=== PATIENT | female | born 1950 | race Caucasian/White ===

== ENCOUNTER → 2018-08-09 | Outpatient (CLI) | payer MEDICARE ==
[~2018-08-09] MED LIST: ACET1TAB12 PO; BUPR-93 PO; RISP1SOL10 PO
== END | disposition home or self-care (01) ==
LOC: OIH 07:34
PROVIDERS: ATTEND Neurological Surgery
DX: M51.36 Other intervertebral disc degeneration, lumbar region (principal); M48.061 Spinal stenosis, lumbar region without neurogenic claudication
CPT/HCPCS: 72100

== ENCOUNTER 2018-08-22 05:33 | Day surgery (SDC) | payer MEDICARE ==
[2018-08-17 12:34] VITALS: BP 123/53
[2018-08-22] VITALS (10 sets, daily range): BP systolic 105–138; BP diastolic 57–76
[~2018-08-22] VITALS: Ht 165.1 cm; Wt 81.1 kg
[~2018-08-22 05:33] MED LIST changes: -ACET1TAB12 PO; +FLUO40CA7 PO; +HYDR-4068 PO
[2018-08-22] MEDS ORDERED: IOPAMIDOL 10 ML VIAL ONE (06:44)
== END 2018-08-22 12:00 | disposition home or self-care (01) ==
LOC: RAH 05:33 → DAH 05:33 → EDSTATUS 07:00 → RAH 12:00
PROVIDERS: ATTEND Neurological Surgery
DX: M48.061 Spinal stenosis, lumbar region without neurogenic claudication (principal); R32 Unspecified urinary incontinence; M41.86 Other forms of scoliosis, lumbar region; G95.89 Other specified diseases of spinal cord; M51.16 Intervertebral disc disorders with radiculopathy, lumbar region; M86.9 Osteomyelitis, unspecified; Z98.890 Other specified postprocedural states; Z79.899 Other long term (current) drug therapy
CPT/HCPCS: 62304; 72132; Q9966

== ENCOUNTER 2018-08-24 12:45 | Inpatient (IN) | payer MEDICARE ==
[~2018-08-24] VITALS: Ht 167.6 cm; Wt 80.3 kg
[~2018-08-24 12:45] MED LIST changes: -RISP1SOL10 PO
[2018-08-24 12:58] VITALS: BP 112/54
[2018-08-24 13:06] LABS: BASOPHILS % (AUTO) 0.5 % (0.0-5.0); EOSINOPHILS % (AUTO) 3.1 % (0.0-8.0); HEMATOCRIT 40.9 % (36-48); LYMPHOCYTES % (AUTO) 20.1 % (21.0-51.0); MEAN CORPUSCULAR HEMOGLOBIN 32.8 pg (27.0-33.0); MEAN CORPUSCULAR HGB CONC 33.1 g/dL (32.0-36.0); MEAN CORPUSCULAR VOLUME 99.2 fL (79-99); MONOCYTES % (AUTO) 10.5 % (3.0-13.0); NEUTROPHILS % (AUTO) 65.8 % (40.0-77.0); NUCLEATED RED BLOOD CELLS 0.1 % (0.0-0.19); PLATELET COUNT (AUTO) 209 K/uL (130-400); RED BLOOD CELL COUNT(AUTO) 4.13 MIL/uL (4.00-5.50); RED CELL DISTRIBUTION WIDTH 12.5 % (11.0-15.5); WHITE BLOOD COUNT (AUTO) 3.3 K/uL (4.8-10.8)
[2018-08-24] MEDS ORDERED: PREG100C PO (13:09)
[2018-08-24] MEDS ORDERED: RISP1TAB89 PO (13:09)
[2018-08-24 13:17] LABS: CREATININE 0.7 mg/dL (0.5-1.5); POTASSIUM 4.3 mmol/L (3.5-5.1)
[2018-08-30] VITALS (18 sets, daily range): BP systolic 102–125; BP diastolic 52–78
[2018-08-30] MEDS ORDERED: LACTATED RINGERS 1000ML 1,000 ML IV ONE ×2 (06:23→06:25)
[2018-08-30] MEDS ORDERED: CLINDAMYCIN 900 MG/D5% WATER 50 ML IV ONE (06:25)
[2018-08-30 06:27] LABS: BASOPHILS % (AUTO) 0.4 % (0.0-5.0); EOSINOPHILS % (AUTO) 3.8 % (0.0-8.0); HEMATOCRIT 39.4 % (36-48); LYMPHOCYTES % (AUTO) 15.1 % (21.0-51.0); MEAN CORPUSCULAR HEMOGLOBIN 32.8 pg (27.0-33.0); MEAN CORPUSCULAR HGB CONC 33.1 g/dL (32.0-36.0); MEAN CORPUSCULAR VOLUME 99.1 fL (79-99); MONOCYTES % (AUTO) 9.9 % (3.0-13.0); NEUTROPHILS % (AUTO) 70.8 % (40.0-77.0); PLATELET COUNT (AUTO) 205 K/uL (130-400); RED BLOOD CELL COUNT(AUTO) 3.97 MIL/uL (4.00-5.50); RED CELL DISTRIBUTION WIDTH 12.4 % (11.0-15.5); WHITE BLOOD COUNT (AUTO) 3.4 K/uL (4.8-10.8)
[2018-08-30 06:35] LABS: CREATININE 0.8 mg/dL (0.5-1.5); POTASSIUM 4.2 mmol/L (3.5-5.1)
[2018-08-30] MEDS: CEFAZOLIN SODIUM 1 GM VIAL IVP PRN ×2 (06:50→08:30)
[2018-08-30] MEDS ORDERED: DEXAMETHASONE SOD PHOSPHATE 10MG/ML 1ML VIAL ONE ×2 (06:54→08:37)
[2018-08-30] MEDS ORDERED: LIDOCAINE PF 2% 5ML ABBOJECT ONE (06:54)
[2018-08-30] MEDS ORDERED: PROPOFOL 10 MG/ML 20ML VIAL IV ONE (06:54)
[2018-08-30] MEDS ORDERED: NEOSTIGMINE 5MG/5ML SYR IV ONE (06:55)
[2018-08-30] MEDS ORDERED: MIDAZOLAM HCL 1 MG/ML 2ML VIAL ONE (06:55)
[2018-08-30] MEDS ORDERED: ROCURONIUM 10MG/1ML SYR 10 MG/ML ML ONE (06:55)
[2018-08-30] MEDS ORDERED: FENTANYL CITRATE PF 50 MCG/1 ML 2ML VIAL ONE ×2 (06:55→10:55)
[2018-08-30] MEDS ORDERED: ONDANSETRON HCL 4 MG/2 ML VIAL ONE (06:55)
[2018-08-30] MEDS ORDERED: GLYCOPYRROLATE 1 MG/5 ML SYRINGE ONE (06:58)
[2018-08-30] MEDS ORDERED: DURAMORPH PF1 MG/ML 10ML AMP IV ONE (07:05)
[2018-08-30] MEDS ORDERED: BUPIVACAINE/EPI/PF 0.25% 30ML VIAL IJ ONE (07:05)
[2018-08-30] MEDS ORDERED: BACITRACIN 50,000 UNIT VIAL ONE (07:06)
[2018-08-30] MEDS ORDERED: THROMBIN-JMI 20000 UNIT KIT TP ONE (07:15)
[2018-08-30] MEDS ORDERED: ATROPINE SULFATE 0.1 MG/ML 10 ML SYG IVP ONE (07:56)
[2018-08-30] MEDS ORDERED: EPHEDRINE SULFATE 50 MG/ML AMPULE ONE (09:31)
[2018-08-30] MEDS ORDERED: PHENYLEPHRINE HCL 10 MG/ML 1ML VIAL IV ONE (11:11)
[2018-08-30] MEDS ORDERED: SODIUM CHLORIDE 0.9% 10 ML VIAL IVP PRN (12:15)
[2018-08-30] MEDS ORDERED: HYDROCODONE/ACETAMINOPHEN 10/325 MG TAB PO PRN (12:15)
[2018-08-30] MEDS ORDERED: CEFAZOLIN SODIUM 1 GM VIAL IVP SCH (12:15)
[2018-08-30] MEDS ORDERED: MORPHINE SULFATE 2 MG/ML 1ML SYG IVP PRN (12:15)
[2018-08-30] MEDS ORDERED: PROMETHAZINE HCL 25 MG/ML 1ML AMPULE IM PRN (12:15)
[2018-08-30] MEDS: DEXAMETHASONE SOD PHOSPHATE 4 MG/ML 1ML VIAL IVP SCH ×3 (12:15→23:27)
[2018-08-30] MEDS ORDERED: MEPERIDINE-PF 25 MG/ML SYG ONE (12:55)
[2018-08-30] MEDS: HYDROCODONE/ACETAMINOPHEN 5/325 MG TAB PO PRN ×2 (16:54→22:00)
[2018-08-30] MEDS: LACTATED RINGERS 1000ML 1,000 ML IV SCH ×2 (16:55→23:27)
[2018-08-30] MEDS: RISPERIDONE 1 MG TABLET PO SCH (22:00)
[2018-08-30] MEDS: PREGABALIN 100 MG CAPSULE PO SCH (22:03)
[2018-08-31 00:31] VITALS: BP 102/50
[2018-08-31 03:36] VITALS: BP 116/66
[2018-08-31] MEDS: DEXAMETHASONE SOD PHOSPHATE 4 MG/ML 1ML VIAL IVP SCH (05:21)
[2018-08-31] MEDS: HYDROCODONE/ACETAMINOPHEN 5/325 MG TAB PO PRN ×2 (05:22→10:16)
[2018-08-31 07:30] VITALS: BP 121/77
[2018-08-31] MEDS ORDERED: **HM** BUPROPION XL 150MG PO SCH (09:00)
[2018-08-31] MEDS ORDERED: FLUOXETINE HCL 20 MG CAPSULE PO SCH (09:00)
[2018-08-31] MEDS: RISPERIDONE 1 MG TABLET PO SCH (10:14)
[2018-08-31] MEDS: PREGABALIN 100 MG CAPSULE PO SCH (10:14)
== END 2018-08-31 10:50 | disposition home or self-care (01) | DRG 516 ==
LOC: DAHIP 08-30 05:37 → 4BH 08-30 13:42
PROVIDERS: ADMIT Neurological Surgery; ATTEND Neurological Surgery
PROC: 01NB0ZZ Release Lumbar Nerve, Open Approach (ICD-10-PCS; principal; 2018-08-30 09:00)
PROC: BR131ZZ Fluoroscopy of Lumbar Disc(s) using Low Osmolar Contrast (ICD-10-PCS; 2018-08-30 09:00)
PROC: 4A11X4G Monitoring of Peripheral Nervous Electrical Activity, Intraoperative, External Approach (ICD-10-PCS; 2018-08-30 09:00)
DX: M48.061 Spinal stenosis, lumbar region without neurogenic claudication (principal); G83.4 Cauda equina syndrome; E66.9 Obesity, unspecified; M41.9 Scoliosis, unspecified; Z96.653 Presence of artificial knee joint, bilateral; F41.9 Anxiety disorder, unspecified; G89.29 Other chronic pain; Z68.28 Body mass index [BMI] 28.0-28.9, adult; Z88.5 Allergy status to narcotic agent
CPT/HCPCS: 36415; 72020; 80048; 85025; A4344; J0461; J0690; J1100; J2001; J2175; J2250; J2274; J2370; J2405; J2704; J2710; J3010; J3490; J7030; J7120

== ENCOUNTER → 2018-11-15 | Outpatient (CLI) | payer MEDICARE ==
[~2018-11-15] MED LIST changes: +PREG100C PO; +RISP1TAB89 PO
== END | disposition home or self-care (01) ==
LOC: RAH 09:55
PROVIDERS: ATTEND Neurological Surgery
DX: M47.816 Spondylosis without myelopathy or radiculopathy, lumbar region (principal); M51.36 Other intervertebral disc degeneration, lumbar region; M48.061 Spinal stenosis, lumbar region without neurogenic claudication
CPT/HCPCS: 72114

== ENCOUNTER → 2019-12-16 | Outpatient (CLI) | payer MEDICARE | END | disposition home or self-care (01) | LOC: RAH 10:05 | PROVIDERS: ATTEND Internal Medicine | DX: M47.816 Spondylosis without myelopathy or radiculopathy, lumbar region (principal); M54.5 Low back pain | CPT/HCPCS: 72114; 72220 ==

== ENCOUNTER → 2024-01-19 | Outpatient (CLI) | payer MEDICARE ==
[2024-01-19 12:18] LABS: CREATININE 0.7 mg/dL (0.5-1.5); POTASSIUM 4.6 mmol/L (3.5-5.1)
== END | disposition home or self-care (01) ==
LOC: LAB 11:04
PROVIDERS: ATTEND Physician Assistant
DX: I25.10 Atherosclerotic heart disease of native coronary artery without angina pectoris (principal)
CPT/HCPCS: 36415; 80048

== ENCOUNTER → 2024-01-23 | Outpatient (CLI) | payer MEDICARE ==
[~2024-01-23] MED LIST changes: +IOHEXOL 350 MG/ML 100ML INFUS..BTL IV ONE
== END | disposition home or self-care (01) ==
LOC: RAH 11:29
PROVIDERS: ATTEND Internal Medicine Cardiovascular Disease
DX: I25.10 Atherosclerotic heart disease of native coronary artery without angina pectoris (principal); I31.39 Other pericardial effusion (noninflammatory); K44.9 Diaphragmatic hernia without obstruction or gangrene; K76.89 Other specified diseases of liver
CPT/HCPCS: 75574; Q9967

== ENCOUNTER → 2024-11-15 | Outpatient (CLI) | payer MEDICARE ==
[~2024-11-15] MED LIST changes: +metoPROLOL tartRATE 1 MG/ML 5ML VIAL IV ONE
--- NOTE | 2024-11-15 11:25 | HMCIMG ---
CT CARDIAC ANGIO W/CONT. CCTA REASON: ANGINA PECTORIS COMPARISON: None TECHNIQUE: Images are obtained through the heart in the axial plane before and during bolus IV contrast infusion, 100 cc Omnipaque 350. 2-D and 3-D multiplanar reconstruction images were then performed. The injection had to be repeated once due to motion artifact on the first sequence, total contrast volume was 200 cc. FINDINGS: This dictation is for the noncardiac findings only. Cardiac and coronary artery findings are reported separately. Visualized portions of the lungs are clear. There is normal-appearing pulmonary interstitium. There is no hilar or mediastinal lymphadenopathy. Chest wall structures appear unremarkable. IMPRESSION: 1. Unremarkable noncardiac portions of CT cardiac angiography.
--- NOTE | 2024-11-19 16:28 | CARDIOLOGY ---
RAD REPORT: [place] [facility] CT ANGIO RADIOLOGY REPORT: CORONARY CT ANGIOGRAPHY DATE: Nov 19, 2024 QUALITY: Excellent CLINICAL HISTORY AND INDICATION: [chest pain ] TECHNIQUE: After obtaining a preliminary wildlife control agent image, contrast imaging performed on an [employer] [id number] scanner. A dedicated, limited window, coronary imaging protocol was used, with single breath-hold, retrospective ECG gating, and automated arrhythmia rejection. 100 cc of low osmolar contrast agent: Omnipaque 350 was delivered via a 18-gauge IV catheter in the right antecubital fossa, using a power injector and followed by 60 cc of normal saline bolus as a chaser. Collimated images were reformatted at 0.5 mm intervals, and sent to an offline independent workstation for interpretation, using 3D anatomic reconstructions: Curved multiplanar reconstructions, maximum intensity projections, and multiplanar imaging. No metoprolol was administered prior to scanning due to low baseline heart rate. 0.4 mg SL nitroglycerin was given. 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 Left main coronary artery: Normal caliber vessel that bifurcates into the LAD and LCx. No stenosis. Left anterior descending coronary artery: Normal caliber vessel and gives rise to diagonal and septal branches. No stenosis. Left circumflex coronary artery: Normal caliber, nondominant and gives rise to a large OM branch. No stenosis. Right coronary artery: Large, dominant vessel giving rise to the PL and PDA branches. 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 Recommend left heart heart catheterization and possible utilization of AL 1 or AL 2 diagnostic catheter. Thoracic Aorta: Normal diameter. Sandra Vargas MD Cardiovascular Disease [facility] SANDRA VARGAS MD Nov 19, 2024 16:28
== END | disposition home or self-care (01) ==
LOC: RAH 07:18
PROVIDERS: ATTEND Internal Medicine Cardiovascular Disease
DX: I20.9 Angina pectoris, unspecified (principal)
CPT/HCPCS: 75574; Q9967; J3490

== ENCOUNTER → 2025-09-15 | Outpatient (CLI) | payer MEDICARE ==
[~2025-09-15] MED LIST changes: -IOHEXOL 350 MG/ML 100ML INFUS..BTL IV ONE; -metoPROLOL tartRATE 1 MG/ML 5ML VIAL IV ONE
--- NOTE | 2025-09-15 15:32 | HMCIMG ---
EXAM: MAGNETIC RESONANCE IMAGING OF THE CERVICAL SPINE WITHOUT INTRAVENOUS CONTRAST Technique: Multiplanar, multisequence magnetic resonance imaging of the cervical spine including sagittal T1-weighted and T2-weighted sequences and axial T2-weighted images from C2 through T1. Contrast: No intravenous contrast was administered. Clinical Information: Spondylosis without myelopathy or radiculopathy, cervical region. Findings: Cervical spine (global): Vertebral body heights are preserved without compression deformity. Multilevel anterior and uncovertebral osteophytosis. Disc desiccation throughout the cervical spine with disc height loss most pronounced at C4???5 and C6???7. Alignment demonstrates preserved cervical lordosis without spondylolisthesis. Bone marrow signal is within expected limits. Spinal cord demonstrates normal caliber and signal without myelomalacia. Craniovertebral junction is normal without Chiari malformation. Paraspinal soft tissues show no edema or mass. C2???3: No significant disc bulge; facet articulations preserved; canal and foramina patent. C3???4: Diffuse disc bulge with facet and uncovertebral hypertrophy; mild central canal stenosis; severe bilateral foraminal stenosis with impingement of the exiting C4 nerve roots. C4???5: Disc osteophyte complex with diffuse disc bulge and facet/uncovertebral hypertrophy; mild central canal stenosis; severe bilateral foraminal stenosis with impingement of the exiting C5 nerve roots. C5???6: Diffuse disc bulge with facet and uncovertebral hypertrophy; mild central canal stenosis; severe bilateral foraminal stenosis with impingement of the exiting C6 nerve roots. C6???7: Circumferential disc bulge with facet and uncovertebral hypertrophy; no central canal stenosis; severe bilateral foraminal stenosis affecting the exiting C7 nerve roots. C7???T1: No significant disc bulge; facet articulations preserved; canal and foramina patent. IMPRESSION: 1. Multilevel cervical spondylosis with severe bilateral foraminal stenosis at C3-4, C4-5, C5-6, and C6-7, potentially affecting C4-C7 nerve roots. Correlate clinically for radicular symptoms. 2. Mild central canal stenosis at C3-4, C4-5, and C5-6. No central canal stenosis at C6-7. 3. No spinal cord signal abnormality or myelomalacia. 4. Preserved vertebral body heights and cervical alignment without spondylolisthesis. 5. Multilevel disc desiccation and osteophytosis throughout the cervical spine, most pronounced at C4-5 and C6-7. 6. Normal craniovertebral junction without Chiari malformation. 7. No paraspinal soft tissue edema or mass. /[place]
--- NOTE | 2025-09-15 15:35 | HMCIMG ---
EXAM: MAGNETIC RESONANCE IMAGING OF THE BRAIN WITHOUT INTRAVENOUS CONTRAST Technique: Multiplanar, multisequence magnetic resonance imaging of the brain including axial T1-weighted, T2-weighted, fluid-attenuated inversion recovery, diffusion-weighted imaging with apparent diffusion coefficient maps, and susceptibility-weighted imaging, with thin-section sequences through the brainstem; coronal and sagittal reformations. Contrast: No intravenous contrast was administered. Clinical Information: R41.3 Other amnesia. Findings: Cerebral parenchyma: No acute infarct on diffusion-weighted imaging; dueñas???white matter differentiation is preserved; no intracranial hemorrhage, mass, or mass effect. Cerebral parenchyma (white matter): Nonspecific foci of high T2/fluid-attenuated inversion recovery signal in the periventricular and deep subcortical white matter. Basal ganglia: Prominent perivascular (Virchow???Alan) spaces in the bilateral basal ganglia. Extra-axial spaces: Normal in size and morphology for age; no extra-axial fluid collection. Ventricular system and basal cisterns: Ventricles are normal in size and configuration for age; basal cisterns are patent. Posterior fossa: Brainstem and cerebellum are unremarkable; no cerebellopontine angle mass. Vascular system: Appropriate arterial and dural venous sinus flow voids are present. Orbits and paranasal sinuses: Intraorbital contents are unremarkable; paranasal sinuses are clear. IMPRESSION: 1. No acute infarct, intracranial hemorrhage, mass, or mass effect. 2. Scattered nonspecific periventricular and deep subcortical white matter hyperintensities, possibly reflecting chronic microvascular ischemic change. Correlate with vascular risk factors and clinical context. 3. Prominent perivascular (Virchow-Alan) spaces in the bilateral basal ganglia, an incidental finding. 4. Ventricles and extra-axial spaces normal in size and morphology for age. 5. Brainstem, cerebellum, and orbits unremarkable. 6. Patent basal cisterns and appropriate arterial and dural venous sinus flow voids. 7. Clear paranasal sinuses. /[place]
== END | disposition home or self-care (01) ==
LOC: RAH 08:13
PROVIDERS: ATTEND Neurological Surgery
DX: M47.812 Spondylosis without myelopathy or radiculopathy, cervical region (principal); M48.02 Spinal stenosis, cervical region; M25.78 Osteophyte, vertebrae; M50.31 Other cervical disc degeneration, high cervical region; M50.321 Other cervical disc degeneration at C4-C5 level; M50.322 Other cervical disc degeneration at C5-C6 level; M50.323 Other cervical disc degeneration at C6-C7 level; R41.3 Other amnesia; R26.9 Unspecified abnormalities of gait and mobility; G98.8 Other disorders of nervous system
CPT/HCPCS: 70551; 72141